=== PATIENT | female | born 1955 | race Caucasian/White ===

== ENCOUNTER 2024-11-22 13:43 | Outpatient (AMB) | payer MEDICARE, MEDICAID, SELFPAY ==
[2024-11-22 14:00] VITALS: BP 135/64; PULSE 81; RESP 19; TEMP 36.6; O2SAT 94; BMI 39.4
--- NOTE | 2024-11-22 14:00 | ORTHONT_ITS ---
Vital signs 11/22/24 14:00 Height 1.63 m Height Method Stated Weight 104.326 kg Weight Measurement Method Estimated by Patient BMI 39.4 BP 135/64 H Blood Pressure Source Automatic Cuff Blood Pressure Location Left Upper Arm Position Sitting Respiration 19 Pulse 81 Pulse Source Monitor Temp 97.8 F Temp Source Temporal Artery Scan Pulse Oximetry (%) 94 L Oxygen Delivery Method Room Air Med/Allergies Allergies & Medications Allergies No Known Allergies Allergy (Verified 11/22/24 14:01) Medication Reconciliation ferrous sulfate 325 mg (65 mg iron) tablet (Iron (ferrous sulfate)) 325 mg PO QDAY 11/22/24 [History Confirmed 11/22/24] Exam Exam Patient is in no acute distress and is cooperative with the examination today. Breathing is nonlabored. Patient has a normal mood and affect. The patient has a gait that is nonantalgic Bilateral extremities were evaluated and demonstrates sensation intact to light touch. Palpable pedal pulses are present. No significant edema is present. Bilateral hips were examined. The patient has no pain with log roll of the hips. Internal rotation to 30 degrees and external rotation to 30 degrees is painless. Negative FADIR. Right knee was examined today. Right knee incision is clean dry intact. Range of motion is 0 to 90 degrees Left knee was examined today. TRange of motion is 5 to 100 degrees. The knee feels stable varus valgus stress was AP translation. She is tender to palpation medially X-rays demonstrate significant left knee arthritis with complete obliteration of the medial joint space Assessment and Plan Problem List (1) Arthritis of left knee: Status: Acute Plan: Patient is a 69-year-old female with a left knee pain and left knee arthritis. She is not a candidate for surgery as she has severe lymphedema in both legs as well as being wheelchair-bound, a smoker, and having multiple medical comorbidities. We recommend continued weight loss and medical optimization. She would also need to quit smoking prior to surgery. We recommend nonoperative treatment. Left knee Injections were done today Recommend knee cortisone injection as patient would like to proceed with conservative treatment at this time. The risks and benefits of the procedure were reviewed with the patient and patient gave verbal consent to continue with the procedure. Procedure: performed by Dr. Sherman Using sterile technique the left knee was thoroughly prepped with alcohol, and approximately 1 cc of Kenalog 40 mg/mL and 4 cc of 1% lidocaine was injected without resistance into the medial tibial femoral joint space. The patient tolerated the procedure. Advanced Care Planning Discussion Advance care planning discussed with:: patient Office Procedures GNS Level of Care Nursing/Assessment Patient Status: Initial/New Patient Nursing Assessment/Reassesment: Medication Reconciliation, Update PMH in EMR and Vital Signs Coordination of Care: Complex Care and Chronic Disease 1-5, Education Complex Pt/Fam, Consent,records obtained, informed consent, 1 Ins Authorization, Lab and Imaging orders, Results/Orders obtained and Staff clarify orders New Patient Charge New Patient Point Assignment: [id number] New Patient Point Charge: CLINICAL REHABILITATION LIAISON Level 4 ([id number]) Surgical Proc/IM SQ injection Major Surgical Procedure: Yes (KNEE INJECTION ) Medication Given Medication Given Medication Given: Yes Documented Dose Given: 8 Route: Infiitration Medication Given Medication Given Medication Given: Yes Documented Dose Given: 2 Route: Infiitration Office Meds Xylocaine 10 mg/mL (1 %) injection solution Performing Provider: Mike Sherman MD Performing Location: [facility] Administered by: Mike Sherman MD on 11/22/24 14:58 Dose Route Admin Location Dispensed Lot Number Expiration Date [facility] Professional Architect 20 mL Infiltration 20 mL [id number] [facility] KA triamcinolone acetonide 40 mg/mL suspension for injection Performing Provider: Mike Sherman MD Performing Location: [facility] Administered by: Mike Sherman MD on 11/22/24 14:58 Dose Route Admin Location Dispensed Lot Number Expiration Date [facility] Professional Architect 40 mg intra-articular KNEE 1 mL [id number] 02/16/26 6105-1717-29 [facility] [place] Intake Visit Data Collection New Patient or Established: New Patient (never been to [facility]) Reason for Visit:: LEFT KNEE PAIN Seen by Clinical Staff ONLY (RN/MA): No Marketing Services Vice President Required: No PCP or OBGYN visit in last 3 months: Yes Hx Now: No Do You Feel Safe at Home: Yes Authorities Contacted: N/A Questionairres Past Medical History Past Medical History Have you ever been diagnosed with any of the following: Surgical History Total Knee Replacement: Yes (RIGHT (15 YEARS AGO)) Subjective Visit Visit for: new patient and knee (LEFT) Immunization / Flu Flu Vaccine in the Last 12 Months: No Flu Vaccine Exclusion Criteria: Refused by Patient History of Present Illness Chief complaint: left knee pain Patient is a 69-year-old female with COPD, history of cocaine abuse, anemia, and severe lymphedema, presenting with left knee pain for 2 months. 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 She was able to walk with walker for past 4 years but is now wheelchair bound since September. Hospitalized for cellulitis in left leg in September. She is still smoking coke. Did PT for 2 years, now unable to tolerate exercises due to pain. No recent cortisone injections. Was taking [place] until recently, cannot take NSAIDs due to GI issues. Personal History Occupation: DISABLED Hobbies: NONE Pain Pain level (0-10): 8 Pain duration: CONSTANT Pain location: inside (medial), outside (lateral), anterior and posterior Pain quality: sharp and aching Pain timing: night and increases with activity Associated signs & symptoms: stiffness Ambulatory data Ambulatory device: other (specify) (WHEELCHAIR) Walking distance (minutes): 1 Treatments Improvement with previous injections: No Improvement with PT: No Improvement with NSAIDS: no Review of Systems Review of Systems: All systems negative unless otherwise noted in HPI.
== END 2024-11-22 14:50 | disposition home or self-care (01) ==
PROVIDERS: Supervising Provider Orthopaedic Surgery Adult Reconstructive Orthopaedic Surgery; Visit Provider Orthopaedic Surgery Adult Reconstructive Orthopaedic Surgery
DX: M17.12 Unilateral primary osteoarthritis, left knee (principal); M25.562 Pain in left knee; I89.0 Lymphedema, not elsewhere classified; Z99.3 Dependence on wheelchair; J44.9 Chronic obstructive pulmonary disease, unspecified
CPT/HCPCS: 20610; 99204; J3301; J3490; G0463